=== PATIENT | female | born 1980 | race African-American/Black ===

== ENCOUNTER 2017-05-04 11:09 | Observation (INO) | payer SELFPAY ==
[~2017-05-04] VITALS: Ht 157.5 cm; Wt 51.5 kg
[2017-05-04 11:21] VITALS: BP 116/73; PULSE 56; RESP 16; TEMP 97.9; O2SAT 100
[2017-05-04] MEDS ORDERED: SODIUM CHLOR 0.9% 1000 ML INJ 1,000 ML IV ONE ×2 (11:51→15:15)
[2017-05-04] MEDS ORDERED: SODIUM CHLORIDE 0.9% FLUSH 10 ML FLUSH IVF PRN (12:00)
[2017-05-04] MEDS ORDERED: LORazepam 2 MG/ML VIAL IV PUSH ONE (12:00)
[2017-05-04 12:05] VITALS: O2SAT 96
[2017-05-04 12:15] LABS: AUTOMATED NEUTROPHIL # 6.9 TH/MM3 (1.8-7.7); BASOPHIL # 0.1 TH/MM3 (0-0.2); BASOPHIL % 0.7 % (0.0-2.0); EOSINOPHIL # 0.1 TH/MM3 (0-0.4); EOSINOPHIL % 1.3 % (0.0-4.0); HEMOGLOBIN 13.5 GM/DL (11.6-15.3); LYMPH % 22.6 % (9.0-44.0); LYMPHOCYTE # 2.2 TH/MM3 (1.0-4.8); MEAN CELL VOLUME 86.2 FL (80.0-100.0); MEAN CORPUSCULAR HEMOGLOBIN 28.4 PG (27.0-34.0); MEAN PLATELET VOLUME 8.7 FL (7.0-11.0); MONO % 3.4 % (0.0-8.0); MONOCYTE # 0.3 TH/MM3 (0-0.9); PLATELET COUNT 412 TH/MM3 (150-450); RED BLOOD COUNT 4.76 MIL/MM3 (4.00-5.30); WHITE BLOOD COUNT 9.6 TH/MM3 (4.0-11.0)
[2017-05-04] MEDS ORDERED: FOSPHENYTOIN INJ 1,000 MGPE in SODIUM CHLORIDE 0.9% INJ 50 ML IV ONE (12:15)
[2017-05-04 12:20] LABS: CHLORIDE 109 MEQ/L (98-107); SODIUM (NA) 137 MEQ/L (136-145)
[2017-05-04 12:22] LABS: BILIRUBIN, URINE NEG (NEG); BLOOD, URINE LARGE (NEG); GLUCOSE,URINE NEG (NEG); KETONE, URINE NEG (NEG); NITRITE,URINE NEG (NEG); URINE COLOR YELLOW (YELLW/STRAW); URINE LEUKOCYTE ESTERASE MOD (NEG)
[2017-05-04 12:23] LABS: CALCIUM 8.4 MG/DL (8.5-10.1)
[2017-05-04 12:24] LABS: ALBUMIN 3.6 GM/DL (3.4-5.0); BICARBONATE 18.8 MEQ/L (21.0-32.0); BLOOD UREA NITROGEN 13 MG/DL (7-18); GLUCOSE,RANDOM 88 MG/DL (74-106)
[2017-05-04 12:27] LABS: ALT (GPT) 18 U/L (10-53); AST (GOT) 14 U/L (15-37); GLOMERULAR FILTRATION RATE 98 ML/MIN (>89)
--- NOTE | 2017-05-04 12:27 | RADRPT ---
EXAM DATE/TIME: 05/04/2017 11:57 [facility] COMPARISON: No previous studies available for comparison. INDICATIONS : Cough MEDICAL HISTORY : None. SURGICAL HISTORY : None. ENCOUNTER: Initial ACUITY: 1 day PAIN SCORE: 02/28 LOCATION: Bilateral chest FINDINGS: Portable AP view of the chest demonstrates a normal-sized cardiac silhouette. Multiple EKG lines over lie the patient. There are interstitial opacities bilaterally with linear opacities in the right uppe r and right midlung zone. No pleural effusion, airspace consolidation, or pneumothorax is identified. There is a nodular opacity in the left upper lobe measuring approximately 7 mm. The bones and soft t issues demonstrate no acute finding. CONCLUSION: Abnormal lungs bilaterally with areas of suspected parenchymal scar in the right lung and nonspecific interstitial changes bilaterally with nodularity in the left upper lobe. The changes may indicate em physema or chronic lung process but this should be correlated with prior imaging studies. Chest CT co uld further characterize, if needed. Roshan León MD on May 04, 2017 at 12:24 Board Certified Radiologist. This report was verified electronically.
[2017-05-04 12:28] LABS: TOTAL BILIRUBIN ADULT 0.2 MG/DL (0.2-1.0); TOTAL PROTEIN 8.3 GM/DL (6.4-8.2)
[2017-05-04 12:30] LABS: ALKALINE PHOSPHATASE 111 U/L (45-117)
[2017-05-04 12:31] LABS: AMORPHOUS SEDIMENT, URINE FEW; BACTERIA, URINE MANY /hpf; WHITE BLOOD CELL CLUMPS FEW
[2017-05-04 12:39] LABS: PHENYTOIN (DILANTIN) 0.4 MCG/ML (10.0-20.0)
[2017-05-04 12:54] VITALS: BP 110/72; PULSE 62; RESP 18; O2SAT 97
--- NOTE | 2017-05-04 12:55 | RADRPT ---
EXAM DATE/TIME: 05/04/2017 12:37 [facility] COMPARISON: No previous studies available for comparison. INDICATIONS : Altered mental status. Body aches. RADIATION DOSE: 57.50 CTDIvol (mGy) MEDICAL HISTORY : None SURGICAL HISTORY : None. ENCOUNTER: Initial ACUITY: 1 day PAIN SCALE: 7/10 LOCATION: cranial TECHNIQUE: Multiple contiguous axial images were obtained of the head. Using automated exposure control and adj ustment of the mA and/or kV according to patient size, radiation dose was kept as low as reasonably a chievable to obtain optimal diagnostic quality images. DICOM format image data is available electro nically for review and comparison. FINDINGS: CEREBRUM: The ventricles are normal for age. No evidence of midline shift, mass lesion, hemorrhage or acute in farction. No extra-axial fluid collections are seen. POSTERIOR FOSSA: The cerebellum and brainstem are intact. The 4th ventricle is midline. The cerebellopontine angle i s unremarkable. EXTRACRANIAL: Visualized sinuses are clear. SKULL: The calvaria is intact. No evidence of skull fracture. CONCLUSION: Negative noncontrast head CT. Roshan León MD on May 04, 2017 at 12:52 Board Certified Radiologist. This report was verified electronically.
[2017-05-04] MEDS ORDERED: cefTRIAXone INJ 1,000 MG in SODIUM CHLORIDE 0.9% INJ 100 ML IV ONE (13:00)
[2017-05-04] MEDS ORDERED: IOHEXOL 350 MG/ML 10 ML VIAL (for RAD DIAG) IVCONTRAST ONE (14:36)
--- NOTE | 2017-05-04 14:54 | RADRPT ---
EXAM DATE/TIME: 05/04/2017 14:13 [facility] COMPARISON: No previous studies available for comparison. INDICATIONS : Trauma. Passed out today. Flu like symptoms x 3 days. Neck pain. RADIATION DOSE: 25.90 CTDIvol (mGy) MEDICAL HISTORY : None SURGICAL HISTORY : None. ENCOUNTER: Initial ACUITY: 1 day PAIN SCALE: 6/10 LOCATION: neck TECHNIQUE: Volumetric scanning of the cervical spine was performed. Multiplanar reconstructions in the sagittal, coronal and oblique axial planes were performed. Using automated exposure control and adjustment o f the mA and/or kV according to patient size, radiation dose was kept as low as reasonably achievable to obtain optimal diagnostic quality images. DICOM format image data is available electronically f or review and comparison. FINDINGS: There is straightening of the normal cervical lordosis. Mild scoliosis is noted. There is no acute fr acture or prevertebral soft tissue swelling. No spinal stenosis is noted. No significant neural caterina inal narrowing is noted. The bony relationship and alignment between C1 and C2 is well maintained. Fi brotic scarring and emphysematous changes are noted within the lung apices. C2-C3: The bony spinal canal is normal in size. No evidence of disc bulge or herniation. The neural forami na are bilaterally patent. C3-C4: The bony spinal canal is normal in size. No evidence of disc bulge or herniation. The neural forami na are bilaterally patent. C4-C5: The bony spinal canal is normal in size. No evidence of disc bulge or herniation. The neural forami na are bilaterally patent. C5-C6: The bony spinal canal is normal in size. No evidence of disc bulge or herniation. The neural forami na are bilaterally patent. C6-C7: The bony spinal canal is normal in size. No evidence of disc bulge or herniation. The neural forami na are bilaterally patent. C7-T1: The bony spinal canal is normal in size. No evidence of disc bulge or herniation. The neural forami na are bilaterally patent. CONCLUSION: 1. No acute fracture or prevertebral soft tissue swelling. 2. Straightening of the normal cervical lordosis. 3. Mild scoliosis of the cervical spine. 4. Fibrotic scarring and emphysematous changes involving the lung apices. John Dumont MD on May 04, 2017 at 14:49 Board Certified Radiologist. This report was verified electronically.
--- NOTE | 2017-05-04 15:01 | RADRPT ---
EXAM DATE/TIME: 05/04/2017 14:20 [facility] COMPARISON: No previous studies available for comparison. INDICATIONS : Abnormal chest x-ray. Flu like symptoms. Body aches. Evaluate for mass. IV CONTRAST: 90 cc Omnipaque 350 (iohexol) IV ; Cumulative dose for multiple exams. RADIATION DOSE: 8.18 CTDIvol (mGy) ; Combined studies - Thorax/Abdomen/Pelvis MEDICAL HISTORY : None SURGICAL HISTORY : None. ENCOUNTER: Initial ACUITY: 1 day PAIN SCALE: 3/10 LOCATION: chest TECHNIQUE: Volumetric scanning of the chest was performed. Using automated exposure control and adjustment of t he mA and/or kV according to patient size, radiation dose was kept as low as reasonably achievable to obtain optimal diagnostic quality images. DICOM format image data is available electronically for review and comparison. Follow-up recommendations for detected pulmonary nodules are based at a minimum on nodule size and pa tient risk factors according to Fleischner Society Guidelines. FINDINGS: There is a somewhat irregular parenchymal airspace disease in the right upper lobe measuring about 2 cm in diameter, probably inflammatory. There is some mild paraseptal emphysema in the in the right nathaniel ng apex. Parenchymal opacities at the lung bases appear to represents scarring and fibrosis. Distally some tra ction bronchiectasis. Also focal area of air trapping the central portion of the right lung base. There is no hilar, mediastinal axillary adenopathy. No pleural or pericardial effusion. No acute find ings in the upper abdomen. CONCLUSION: 1. Focal consolidation right upper lobe probably representing a small pneumonia. Irregular parenchymal opacities predominantly at the lung bases associated with traction bronchiectas is and fibrotic changes. There is no definite honeycombing. Minimal air trapping. Differential diagno sis includes some form of basilar fibrotic interstitial pneumonitis, possibly nonspecific interstitia l pneumonitis. Stepan Jacobs MD on May 04, 2017 at 14:49 Board Certified Radiologist. This report was verified electronically.
--- NOTE | 2017-05-04 15:02 | PD ---
HPI Chief Complaint: Cold / Flu Symptoms Time Seen by Provider: 11:46 Travel History International Travel<30 days: No Contact w/Intl Traveler<30days: No Traveled to known affect area: No History of Present Illness HPI 36 y/o female presents with a witnessed tonic-clonic seizure here in triage. She is currently postictal and can only tell me she has been off Dilantin for years and has history of seizure disorder and has been having flulike symptoms over the past couple of days. History is limited on initial evaluation. PFSH Past Medical History Respiratory: Yes (sarcoidosis) Seizures: Yes Tetanus Vaccination: Unknown Influenza Vaccination: No ?: Not LMP: EARLY MENOPAUSE PER PT. Past Surgical History Surgical History: No Previous Surgery Social History Alcohol Use: Yes (occ) Tobacco Use: Yes (1ppd) Substance Use: Yes (mj) Allergies-Medications (Allergen,Severity, Reaction): Coded Allergies: No Known Allergies (Unverified , 05/04/17) Reported Meds & Prescriptions Reported Meds & Active Scripts Active No Active Prescriptions or Reported Medications Review of Systems Except as stated in HPI: all other systems reviewed are Neg Physical Exam Narrative GENERAL: 36-year-old female who appears postictal, incontinent of urine SKIN: Focused skin assessment warm/dry. HEAD: Atraumatic. Normocephalic. EYES: Pupils equal and round. No scleral icterus. No injection or drainage. ENT: No nasal bleeding or discharge. Mucous membranes pink and moist. NECK: Trachea midline. No JVD. C-collar placed as report that patient fell and hit head CARDIOVASCULAR: Regular rate and rhythm. RESPIRATORY: No accessory muscle use. Clear to auscultation. Breath sounds equal bilaterally. GASTROINTESTINAL: Abdomen soft, nondistended. MUSCULOSKELETAL: No obvious deformities. No clubbing. No cyanosis. NEUROLOGICAL: Patient has eyes open, moves all extremities, slow clear speech Data Data Last Documented VS Vital Signs Date Time Temp Pulse Resp B/P (MAP) Pulse Ox O2 Delivery O2 Flow Rate FiO2 05/04/17 12:54 62 18 110/72 (85) 97 Room Air 05/04/17 11:21 97.9 Orders Orders Complete Blood Count With Diff (05/04/17 11:51) Alcohol (Ethanol) (05/04/17 11:51) Phenytoin (Dilantin) (05/04/17 11:51) Drug Screen, Random Urine (05/04/17 11:51) Electrocardiogram (05/04/17 ) Ct Brain W/O Iv Contrast(Rout) (05/04/17 ) Blood Glucose (05/04/17 11:51) Ecg Monitoring (05/04/17 11:51) Iv Access Insert/Monitor (05/04/17 11:51) Oximetry (05/04/17 11:51) Comprehensive Metabolic Panel (05/04/17 11:51) Sodium Chlor 0.9% 1000 Ml Inj (Ns 1000 M (05/04/17 11:51) Sodium Chloride 0.9% Flush (Ns Flush) (05/04/17 12:00) Urinalysis - C+S If Indicated (05/04/17 11:51) Influenzae A/B Antigen (05/04/17 11:51) Chest, Single Ap (05/04/17 ) Lorazepam Inj (Ativan Inj) (05/04/17 12:00) Fosphenytoin Inj (Cerebyx Inj) (05/04/17 12:15) Urine Culture (05/04/17 12:10) Ceftriaxone Inj (Rocephin Inj) (05/04/17 13:00) Ct Thorax/ Chest W Iv Contrast (05/04/17 13:03) Ct Abd/Pel W Iv Contrast(Rout) (05/04/17 13:03) Ct Cerv Spine W/O Contrast (05/04/17 ) Iohexol 350 Inj (Omnipaque 350 Inj) (05/04/17 14:36) Remove Cervical Collar (05/04/17 14:58) Admit Order (Ed Use Only) (05/04/17 15:12) Labs Laboratory Tests Test 05/04/17 11:50 05/04/17 12:10 White Blood Count 9.6 TH/MM3 Red Blood Count 4.76 MIL/MM3 Hemoglobin 13.5 GM/DL Hematocrit 41.0 % Mean Corpuscular Volume 86.2 FL Mean Corpuscular Hemoglobin 28.4 PG Mean Corpuscular Hemoglobin Concent 33.0 % Red Cell Distribution Width 14.0 % Platelet Count 412 TH/MM3 Mean Platelet Volume 8.7 FL Neutrophils (%) (Auto) 72.0 % Lymphocytes (%) (Auto) 22.6 % Monocytes (%) (Auto) 3.4 % Eosinophils (%) (Auto) 1.3 % Basophils (%) (Auto) 0.7 % Neutrophils # (Auto) 6.9 TH/MM3 Lymphocytes # (Auto) 2.2 TH/MM3 Monocytes # (Auto) 0.3 TH/MM3 Eosinophils # (Auto) 0.1 TH/MM3 Basophils # (Auto) 0.1 TH/MM3 CBC Comment DIFF FINAL Differential Comment Blood Urea Nitrogen 13 MG/DL Creatinine 0.80 MG/DL Random Glucose 88 MG/DL Total Protein 8.3 GM/DL Albumin 3.6 GM/DL Calcium Level 8.4 MG/DL Alkaline Phosphatase 111 U/L Aspartate Amino Transf (AST/SGOT) 14 U/L Alanine Aminotransferase (ALT/SGPT) 18 U/L Total Bilirubin 0.2 MG/DL Sodium Level 137 MEQ/L Potassium Level 3.4 MEQ/L Chloride Level 109 MEQ/L Carbon Dioxide Level 18.8 MEQ/L Anion Gap 9 MEQ/L Estimat Glomerular Filtration Rate 98 ML/MIN Phenytoin (Dilantin) Level 0.4 MCG/ML Ethyl Alcohol Level LESS THAN 3 MG/DL Urine Collection Type CLEAN CATCH Urine Color YELLOW Urine Turbidity TURBID Urine pH 6.0 Urine Specific Rock 1.025 Urine Protein TRACE mg/dL Urine Glucose (UA) NEG mg/dL Urine Ketones NEG mg/dL Urine Occult Blood LARGE Urine Nitrite NEG Urine Bilirubin NEG Urine Urobilinogen 0.2 MG/DL Urine Leukocyte Esterase MOD Urine RBC 4-9 /hpf Urine WBC 3-5 /hpf Urine WBC Clumps FEW Urine Squamous Epithelial Cells 6-8 /hpf Urine Amorphous Sediment FEW Urine Bacteria MANY /hpf Microscopic Urinalysis Comment CULTURE INDICATED Urine Collection Time 1210 Urine Opiates Screen NEG Urine Barbiturates Screen NEG Urine Amphetamines Screen NEG Urine Benzodiazepines Screen NEG Urine Cocaine Screen NEG Urine Cannabinoids Screen POS MDM Medical Decision Making Medical Screen Exam Complete: Yes Emergency Medical Condition: Yes Medical Record Reviewed: Yes (past history confirmed) Interpretation(s) CBC & BMP Diagram 05/04/17 11:50 Total Protein 8.3 H, Albumin 3.6, Calcium Level 8.4 L, Alkaline Phosphatase 111 , Aspartate Amino Transf (AST/SGOT) 14 L, Alanine Aminotransferase (ALT/SGPT) 18 , Total Bilirubin 0.2 Last [address] 05/04/17 1303 Signed Impressions: Service Date/Time: Thursday, May 04, 2017 14:20 - CONCLUSION: 1. Focal consolidation right upper lobe probably representing a small pneumonia. Irregular parenchymal opacities predominantly at the lung bases associated with traction bronchiectasis and fibrotic changes. There is no definite honeycombing. Minimal air trapping. Differential diagnosis includes some form of basilar fibrotic interstitial pneumonitis, possibly nonspecific interstitial pneumonitis. Stepan Jacobs MD Abdomen/Pelvis CT 05/04/17 1303 Signed Impressions: Service Date/Time: Thursday, May 04, 2017 14:20 - CONCLUSION: 1. Small amount of free fluid in the pelvis. Otherwise no acute findings on abdomen and pelvic CT. Small hiatal hernia. Stepan Jacobs MD Head CT 05/04/17 0000 Signed Impressions: Service Date/Time: Thursday, May 04, 2017 12:37 - CONCLUSION: Negative noncontrast head CT. Roshan León MD Chest X-Ray 05/04/17 0000 Signed Impressions: Service Date/Time: Thursday, May 04, 2017 11:57 - CONCLUSION: Abnormal lungs bilaterally with areas of suspected parenchymal scar in the right lung and nonspecific interstitial changes bilaterally with nodularity in the left upper lobe. The changes may indicate emphysema or chronic lung process but this should be correlated with prior imaging studies. Chest CT could further characterize, if needed. Roshan León MD Cervical Spine CT 05/04/17 0000 Signed Impressions: Service Date/Time: Thursday, May 04, 2017 14:13 - CONCLUSION: 1. No acute fracture or prevertebral soft tissue swelling. 2. Straightening of the normal cervical lordosis. 3. Mild scoliosis of the cervical spine. 4. Fibrotic scarring and emphysematous changes involving the lung apices. John Dumont MD Differential Diagnosis Pneumonia, influenza, URI, UTI, intracranial Narrative Course Will check blood work, chest x-ray, influenza, CT brain and C-spine and reevaluate And reevaluation patient is more alert. Chest x-ray suggests CT chest but is likely chronic scarring as patient states she has some type of lung disease maybe sarcoidosis. She now is stating she has abdominal pain and is menopausal so will add on CT abdomen and pelvis additionally. Patient was loaded with Cerebyx ED workup reveals right upper lobe pneumonia. She was already given Rocephin for possible UTI. Patient has not had additional seizure here. Patient's blood pressure is starting to trend down with systolic currently 98. Given underlying lung disease Will admit to the hospital for observation. Patient agreement to above. Will add Rocephin to antibiotics. Physician Communication Physician Communication dr garcia states if workup is negative patient can go home on Dilantin 150 mg twice a day dr sanchez agrees to admit Diagnosis Primary Impression: Right upper lobe pneumonia Qualified Codes: J18.1 - Lobar pneumonia, unspecified organism Additional Impression: Seizure Admitting Information Admitting Physician Requests: Observation Scripts No Active Prescriptions or Reported Meds Keshia Alfaro MD May 04, 2017 15:02
--- NOTE | 2017-05-04 15:03 | RADRPT ---
EXAM DATE/TIME: 05/04/2017 14:20 [facility] COMPARISON: No previous studies available for comparison. INDICATIONS : Flu like symptoms. Body aches. IV CONTRAST: 85 cc Omnipaque 350 (iohexol) IV ; Cumulative dose for multiple exams. ORAL CONTRAST: No oral contrast ingested. RADIATION DOSE: CTDIvol (mGy) ; Combined studies - Thorax/Abdomen/Pelvis MEDICAL HISTORY : None SURGICAL HISTORY : None. ENCOUNTER: Initial ACUITY: 3 days PAIN SCALE: 5/10 LOCATION: Abdomen. TECHNIQUE: Volumetric scanning of the abdomen and pelvis was performed. Using automated exposure control and ad justment of the mA and/or kV according to patient size, radiation dose was kept as low as reasonably achievable to obtain optimal diagnostic quality images. DICOM format image data is available electro nically for review and comparison. FINDINGS: Basilar fibrotic changes noted in the lungs with mild air trapping. See chest CT report. Liver is somewhat heterogeneous. Spleen, adrenals, kidneys and pancreas unremarkable. No calcified ga llstones. No bowel obstruction. No adenopathy. No pelvic masses identified. There is a small amount of free flu id in the pelvis. CONCLUSION: 1. Small amount of free fluid in the pelvis. Otherwise no acute findings on abdomen and pelvic CT. Sm all hiatal hernia. Stepan Jacobs MD on May 04, 2017 at 14:59 Board Certified Radiologist. This report was verified electronically.
[2017-05-04] MEDS ORDERED: AZITHROMYCIN INJ 500 MG in SODIUM CHLOR 0.9% 250 ML INJ 250 ML IV ONE (15:15)
[2017-05-04] MEDS ORDERED: SODIUM CHLORIDE 0.9% FLUSH 10 ML FLUSH IV FLUSH PRN (16:00)
[2017-05-04] MEDS ORDERED: MAGNESIUM HYDROXIDE SUSP 30 ML CUP PO PRN (16:00)
[2017-05-04] MEDS ORDERED: ONDANSETRON HCL 4 MG/2 ML VIAL IVP PRN (16:00)
[2017-05-04] MEDS ORDERED: NALOXONE HCL 0.4 MG/ML AMP IV PUSH PRN (16:00)
[2017-05-04 16:50] VITALS: BP 115/69
[2017-05-04] MEDS ORDERED: SODIUM CHLORIDE 0.9% FLUSH 10 ML FLUSH IV FLUSH SCH (21:00)
[2017-05-04] MEDS ORDERED: PHENYTOIN SODIUM 100 MG CAP PO SCH (22:00)
[2017-05-05] MEDS ORDERED: LEVOFLOXACIN 750 MG TAB PO SCH (09:00)
--- NOTE | 2017-05-05 17:45 | EKG ---
Date Performed: 05/04/2017 Time Performed: 12:17:38 PTAGE: 36 years EKG: SINUS BRADYCARDIA WITH SHORT NC INTERVAL POSSIBLE RIGHT VENTRICULAR CONDUCTION DELAY MINIMA L ST DEPRESSION BORDERLINE ECG NO PREVIOUS TRACING DOCTOR: Parveen Garcia Interpretating Date/Time 05/05/2017 17:44:38
== END 2017-05-04 16:54 | disposition left against medical advice (07) ==
LOC: PHED 11:09 → PHEDA 15:12
PROVIDERS: ADMIT Psychiatry & Neurology Neurology; ATTEND Psychiatry & Neurology Neurology
DX: J18.1 Lobar pneumonia, unspecified organism (principal); J47.0 Bronchiectasis with acute lower respiratory infection; G40.89 Other seizures; R10.9 Unspecified abdominal pain; R00.1 Bradycardia, unspecified; D86.9 Sarcoidosis, unspecified; J84.89 Other specified interstitial pulmonary diseases; K44.9 Diaphragmatic hernia without obstruction or gangrene; M41.82 Other forms of scoliosis, cervical region; F17.200 Nicotine dependence, unspecified, uncomplicated; Z78.0 Asymptomatic menopausal state
CPT/HCPCS: 70450; 71045; 71260; 72125; 74177; 80053; 80185; 80307; 81001; 85025; 87077; 87086; 87186; 87804; 93005; 96361; 96365; 96367; 96375; 99285; G0378; J0696; J2060; J7030; Q9967; J0456; J7050; Q2009

== ENCOUNTER 2017-05-04 17:03 | Emergency (ER) | payer SELFPAY ==
[~2017-05-04] VITALS: Ht 157.5 cm; Wt 51.0 kg
[2017-05-04 17:18] VITALS: BP 127/79; PULSE 64; RESP 18; TEMP 98.8; O2SAT 100
--- NOTE | 2017-05-04 17:46 | PD ---
HPI Chief Complaint: Cold / Flu Symptoms Time Seen by Provider: 17:24 Travel History International Travel<30 days: No Contact w/Intl Traveler<30days: No Traveled to known affect area: No History of Present Illness HPI 36 years old female is here for admission. Patient was seen earlier in emergency room with diagnosis of pneumonia and seizure. Patient signed out AMA and return now for admission. Patient denies any new problem. PFSH Past Medical History Heart Rhythm Problems: Yes Diminished Hearing: No Hypertension: Yes Respiratory: Yes (sarcoidosis) Seizures: Yes Tetanus Vaccination: Unknown Influenza Vaccination: No ?: Not Menopausal: Yes Past Surgical History Section: Yes Other Surgery: Yes (lung scraping ) Social History Alcohol Use: Yes (occ) Tobacco Use: Yes (1ppd) Substance Use: Yes (mj) Allergies-Medications (Allergen,Severity, Reaction): Coded Allergies: No Known Allergies (Unverified , 05/04/17) Reported Meds & Prescriptions Reported Meds & Active Scripts Active No Active Prescriptions or Reported Medications Review of Systems General / Constitutional: No: Fever Eyes: No: Visual changes HENT: No: Headaches Cardiovascular: No: Chest Pain or Discomfort Respiratory: Positive: Cough, No: Shortness of Breath Gastrointestinal: No: Abdominal Pain Genitourinary: No: Dysuria Musculoskeletal: No: Pain Skin: No Rash Neurologic: Positive: Seizures, No: Weakness Psychiatric: No: Depression Endocrine: No: Polydipsia Hematologic/Lymphatic: No: Easy Bruising Physical Exam Narrative GENERAL: Well-nourished, well-developed patient. SKIN: Focused skin assessment warm/dry. HEAD: Normocephalic. EYES: No scleral icterus. No injection or drainage. NECK: Supple, trachea midline. No JVD or lymphadenopathy. CARDIOVASCULAR: Regular rate and rhythm without murmurs, gallops, or rubs. RESPIRATORY: Breath sounds equal bilaterally. No accessory muscle use. GASTROINTESTINAL: Abdomen soft, non-tender, nondistended. MUSCULOSKELETAL: No cyanosis, or edema. BACK: Nontender without obvious deformity. No CVA tenderness. Neurologic exam normal. Data Data Last Documented VS Vital Signs Date Time Temp Pulse Resp B/P (MAP) Pulse Ox O2 Delivery O2 Flow Rate FiO2 05/04/17 17:31 Room Air 05/04/17 17:18 98.8 64 18 127/79 (95) 100 MDM Medical Decision Making Medical Screen Exam Complete: Yes Emergency Medical Condition: Yes Differential Diagnosis Differential diagnoses including pneumonia, seizure. Narrative Course 36-year-old female return to the ED for admission for diagnosis of pneumonia and seizure. Diagnosis Primary Impression: Right upper lobe pneumonia Qualified Codes: J18.1 - Lobar pneumonia, unspecified organism Additional Impression: Seizure Admitting Information Admitting Physician Requests: Admit Scripts No Active Prescriptions or Reported Meds Sin Barbosa MD May 04, 2017 17:46
[2017-05-04] MEDS ORDERED: NICOTINE 21 MG/24 HR PATCH T-DERMAL ONE (19:00)
[2017-05-04] MEDS ORDERED: IBUPROFEN 600 MG TAB PO ONE (19:00)
== END 2017-05-04 19:25 | disposition left against medical advice (07) ==
LOC: PHED 17:03 → PHEDA 17:48 → UNDOADMIN 17:48
DX: J18.1 Lobar pneumonia, unspecified organism (principal); R56.9 Unspecified convulsions; I10 Essential (primary) hypertension; F17.200 Nicotine dependence, unspecified, uncomplicated; Z87.09 Personal history of other diseases of the respiratory system
CPT/HCPCS: 99281

== ENCOUNTER 2017-05-17 19:56 | Emergency (ER) | payer SELFPAY ==
[~2017-05-17] VITALS: Ht 157.5 cm; Wt 50.0 kg
[2017-05-17 20:16] VITALS: BP 122/78; PULSE 95; RESP 16; TEMP 99.3; O2SAT 100
[2017-05-17] MEDS ORDERED: RESP: IPRATROPIUM 0.5 MG/2.5 ML NEB NEB ONE ×2 (21:15→22:45)
[2017-05-17] MEDS ORDERED: AZITHROMYCIN 250 MG TAB PO ONE (21:15)
--- NOTE | 2017-05-17 21:40 | PD ---
HPI Chief Complaint: Respiratory Symptoms Time Seen by Provider: 20:25 Travel History International Travel<30 days: No Contact w/Intl Traveler<30days: No Traveled to known affect area: No History of Present Illness HPI Patient is a 36-year-old female who says 7 days ago she was at [place] [facility] they diagnosed her with pneumonia gave her a dose of IV antibiotics and wanted to admit her. However she said she had to leave AMA because of her daughter. She said over the last 7 days it has progressively getting worse she denies being given any antibiotics and has been on no treatment for this. 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 However reading the note from her visit to [place] apparently she insisted she had to go out to smoke and was told no and then became somewhat belligerent and verbally abusive to the staff using profanity and then refused to sign AMA and left per note read by the nursing staff at [place]. Patient will have an x-ray will have a Z-Jamal will have a in [place] and then be discharged with a Z-Jamal and prednisone follow-up as an outpatient [facility] Past Medical History Heart Rhythm Problems: Yes Diminished Hearing: No Hypertension: Yes Respiratory: Yes (Sarcodosis) Seizures: Yes Tetanus Vaccination: < 5 Years Influenza Vaccination: Yes ?: Not Menopausal: Yes Past Surgical History Section: Yes Other Surgery: Yes (lung scraping ) Social History Alcohol Use: Yes (occ) Tobacco Use: Yes (1/2 ppd) Substance Use: Yes (mj) Allergies-Medications (Allergen,Severity, Reaction): Coded Allergies: No Known Allergies (Unverified , 05/17/17) Reported Meds & Prescriptions Reported Meds & Active Scripts Active Atrovent HFA 12.9 GM Inh (Ipratropium [place]) 17 Mcg/Actuation Aer 2 Puff INH TID Prednisone 50 Mg Tab 50 Mg PO DAILY Azithromycin 250 Mg Tab 250 Mg PO DAILY Guaifenesin AC Liq (Guaifenesin-Codeine Liq) 100-10 Mg/5 Ml Syrp 10 Ml PO Q6H PRN Review of Systems Except as stated in HPI: all other systems reviewed are Neg Physical Exam Narrative GENERAL: no resp distress , no audible wheeze on cough on initial exam SKIN: Warm and dry. HEAD: Atraumatic. Normocephalic. EYES: Pupils equal and round. No scleral icterus. No injection or drainage. ENT: No nasal bleeding or discharge. Mucous membranes pink and moist. NECK: Trachea midline. No JVD. CARDIOVASCULAR: Regular rate and rhythm. RESPIRATORY: No accessory muscle use. Clear to auscultation. Breath sounds equal bilaterally. GASTROINTESTINAL: Abdomen soft, non-tender, nondistended. Hepatic and splenic margins not palpable. MUSCULOSKELETAL: Extremities without clubbing, cyanosis, or edema. No obvious deformities. NEUROLOGICAL: Awake and alert. No obvious cranial nerve deficits. Motor grossly within normal limits. Five out of 5 muscle strength in the arms and legs. Normal speech. PSYCHIATRIC: Appropriate mood and affect; insight and judgment normal. Data Data Last Documented VS Vital Signs Date Time Temp Pulse Resp B/P (MAP) Pulse Ox O2 Delivery O2 Flow Rate FiO2 05/17/17 22:30 60 16 122/77 (92) 97 Room Air 05/17/17 21:44 21 05/17/17 20:16 99.3 Orders Orders Ipratropium Neb (Atrovent Neb) (05/17/17 21:15) Azithromycin (Zithromax) (05/17/17 21:15) Chest, Pa & Lat (05/17/17 ) Prednisone (Deltasone) (05/17/17 22:30) Ipratropium Neb (Atrovent Neb) (05/17/17 22:45) Guaifen-Cod 200-20 Mg/10ml Liq (Robituss (05/17/17 22:45) Ed Discharge Order (05/17/17 23:10) [facility] Medical Decision Making Medical Screen Exam Complete: Yes Emergency Medical Condition: Yes Differential Diagnosis Patient has bronchitis versus pneumonia versus sarcoidosis lung inflammation versus post pneumonia scarring versus asthma versus COPD other Narrative Course Patient's chest x-ray has linear streaks in the middle right lobe which are consistent with active pneumonia I give her azithromycin p.o. I give her prednisone Atrovent neb cough medication and discharged to follow-up as an outpatient for a week of azithromycin and a steroids for 5 days and follow-up as an outpatient she is satting 100% on room air. there is no need for inpatient treatment or IV antibiotics Diagnosis Primary Impression: Pneumonia Qualified Codes: J18.1 - Lobar pneumonia, unspecified organism Patient Instructions: Bacterial Pneumonia (ED), General Instructions Scripts Ipratropium HFA 12.9 GM Inh (Atrovent HFA 12.9 GM Inh) 17 Mcg/Actuation Aer 2 PUFF INH TID, #1 INHALER 0 Refills Prov: Arnol Chan MD 05/17/17 Prednisone (Prednisone) 50 Mg Tab 50 MG PO DAILY, #5 TAB 0 Refills Prov: Arnol Chan MD 05/17/17 Azithromycin (Azithromycin) 250 Mg Tab 250 MG PO DAILY for Infection, #5 TAB 0 Refills Prov: Arnol Chan MD 05/17/17 Guaifenesin-Codeine Liq (Guaifenesin AC Liq) 100-10 Mg/5 Ml Syrp 10 ML PO Q6H Y for COUGH, #1 BOTTLE 0 Refills Prov: Arnol Chan MD 05/17/17 Disposition: 01 DISCHARGE HOME Condition: Good Arnol Chan MD May 17, 2017 21:40
[2017-05-17 21:44] VITALS: O2SAT 99
--- NOTE | 2017-05-17 22:28 | RADRPT ---
EXAM DATE/TIME: 05/17/2017 22:02 [place] COMPARISON: CT THORAX W CONTRAST, May 04, 2017, 14:20. INDICATIONS : Cough MEDICAL HISTORY : None. SURGICAL HISTORY : None. ENCOUNTER: [facility] ACUITY: 2 weeks PAIN SCORE: 0/10 LOCATION: Bilateral chest FINDINGS: There is mild linear density in the right upper lobe. There is minimal increased density identified a t the right lower lobe. Left lung appears fairly clear. The lungs are hyperinflated. No effusion is s een. CONCLUSION: Mild linear density seen in the right lung. Mild consolidation or atelectasis needs to be considered. The lungs are hyperinflated. Roshan Michel MD on May 17, 2017 at 22:25 Board Certified Radiologist. This report was verified electronically.
[2017-05-17 22:30] VITALS: BP 122/77; PULSE 60; RESP 16; O2SAT 97
[2017-05-17] MEDS ORDERED: predniSONE 20 MG TAB PO ONE (22:30)
[2017-05-17] MEDS ORDERED: guaiFENesin/CODEINE SYRUP 200 MG/20 MG/10 ML CUP PO ONE (22:45)
[2017-05-17] MEDS ORDERED: AZIT250T3 PO (22:51)
[2017-05-17] MEDS ORDERED: GUAISYP4 PO (22:51)
[2017-05-17] MEDS ORDERED: IPRA17I INH (22:52)
[2017-05-17] MEDS ORDERED: PRED50 PO (22:52)
== END 2017-05-17 23:16 | disposition home or self-care (01) ==
LOC: NEPC 19:56
DX: J18.1 Lobar pneumonia, unspecified organism (principal); D86.9 Sarcoidosis, unspecified; I10 Essential (primary) hypertension; F17.200 Nicotine dependence, unspecified, uncomplicated
CPT/HCPCS: 71046; 94640; 94664; 99283; J7512; J7644